=== PATIENT | male | born 1990 | race Caucasian/White ===

== ENCOUNTER 2020-12-05 13:25 | Emergency (ER) | payer OTHER, SELFPAY ==
[2020-12-05 13:49] VITALS: BP 121/70; PULSE 72; RESP 16; TEMP 36.6; O2SAT 100
[2020-12-05 13:51] VITALS: BP 121/70; PULSE 72; RESP 16; TEMP 36.6; O2SAT 100
--- NOTE | 2020-12-05 14:02 | ED.URI ---
HPI - URI/Sore Throat General Chief Complaint: Upper Respiratory Infection Stated Complaint: Runny Nose Time Seen by Provider: 12/05/20 13:50 Source: patient Mode of arrival: ambulatory Limitations: no limitations History of Present Illness HPI Narrative: Brett Mcneil is a 30 yo male with no PMH who comes to express care with lack of taste and smell and runny nose; states he had a sweat last night and assumed that it was because he had a fever. Work yesterday on a 14-day quarantine for the symptoms described. No nausea vomiting diarrhea, his mother was diagnosed at [facility] with Covid and she is there to take care of the [id number] twin boys until they can be returned to the child's mother Related Data Home Medications Medication Instructions Recorded Confirmed divalproex [Depakote] 250 mg PO Q12H 12/05/20 12/05/20 folic acid 1 mg PO DAILY 12/05/20 12/05/20 Allergies Allergy/AdvReac Type Severity Reaction Status Date / Time No Known Allergies Allergy Verified 12/05/20 13:49 Review of Systems Review of Systems: Narrative: CONSTITUTIONAL: Denies fever, chills, sweats. EYES: Denies visual changes, redness, discharge. ENT: Denies rhinorrhea, congestion, sore throat, otalgia. Rhinorrhea; now states has lack of taste and smell CARDIOVASCULAR: Denies chest pain, palpitations, edema. RESPIRATORY: Denies dyspnea, wheezing, cough GASTROINTESTINAL: Denies abdominal pain, nausea, vomiting, diarrhea. GENITOURINARY: Denies dysuria, hematuria, abnormal discharge SKIN: Denies rash or itching. NEUROLOGIC: Denies numbness, or focal weakness. PSYCHIATRIC: Denies anxiety or depression. PMFSH Past Medical History Medical History No acute medical problems Family History Family History Mother COVID-19 Social History Social History (Updated 12/05/20 @ 14:07 by Esme Brand CNP) Smoking status: Never smoker Alcohol intake: current Exam Narrative: Exam Narrative: GENERAL: This is a well-nourished, well-developed patient, in mild distress. HEAD: normocephalic, atraumatic. EYES: Sclera clear/white. Vision is grossly intact. EARS: External ears normal. Hearing grossly intact. NOSE: External nose normal without nasal discharge, nares without redness, has rhinorrhea. THROAT: Mucous membranes moist, NECK: Neck supple, CARDIOVASCULAR: Regular rate and rhythm without murmurs, gallops, or rubs. RESPIRATORY: Clear to auscultation. Breath sounds equal bilaterally. No wheezes, rales, or rhonchi. GASTROINTESTINAL: Abdomen soft, SKIN: warm, intact with no suspicious lesions or rash, good texture and turgor. NEURO: awake, alert, and oriented to person, place and time. There were no obvious focal neurologic abnormalities. Steady gait EXTREMITIES: Normal range of motion. BACK: Nontender without deformity Course Course Emergency Course: Patient came here for testing after placed on Covid quarantine by work for runny nose states he has some loss of taste and smell Rapid Covid test positive Given precautions for infection including . Reviewed symptoms of COVID-19 FEVER, COUGH, URI SYMPTOMS (WILEY, SORE THROAT, RHINORRHEA), GI SYMPTOMS (DIARRHEA, N/V), SHORTNESS OF BREATH, LOSS OF TASTE, HIGH RISK TRAVEL/EXPOSURE. Urged to continue use of Flonase and Zyrtec and return either here or to clinic if symptoms worsen Patient may be contacted by health department for contact tracing Vital Signs Vital signs: Vital Signs Temperature 97.9 F 12/05/20 13:49 Pulse Rate 72 12/05/20 13:49 Respiratory Rate 16 12/05/20 13:49 Blood Pressure 121/70 12/05/20 13:49 Pulse Oximetry 100 12/05/20 13:49 Temperature 97.9 F 12/05/20 13:51 Pulse Rate 72 12/05/20 13:51 Respiratory Rate 16 12/05/20 13:51 Blood Pressure 121/70 12/05/20 13:51 Pulse Oximetry 100 12/05/20 13:51 MDM - URI/Sore Throat Diff
== END 2020-12-05 14:20 | disposition home or self-care (01) ==
PROVIDERS: Emergency Provider Nurse Practitioner
DX: U07.1 COVID-19 (principal)
CPT/HCPCS: 87426; 99203; C9803; G0463